=== PATIENT | male | born 1985 | race Caucasian/White ===

== ENCOUNTER 2018-10-11 14:09 | Emergency (ER) | payer BC ==
--- NOTE | 2018-10-11 18:14 | ED ---
Lower Extremity - HPI Summary HPI Summary: 33-year-old male presents with left posterior knee pain for the past couple days. He states he noticed some redness to the area. Denies any recent travel. He does have family history of blood clots. Is a smoker. he denies any chest pain or shortness breath. No injury. No numbness or tingling. No other pain. Denies any swelling. no fevers. no bug bite or tick exposure. never had this before. - History of Current Complaint Chief Complaint: EDExtremityLower Stated Complaint: SWELLING AND PAIN IN KNEE Time Seen by Provider: 10/11/18 17:39 Pain Intensity: 0 - Allergies/Home Medications Allergies/Adverse Reactions: Allergies Allergy/AdvReac Type Severity Reaction Status Date / Time No Known Allergies Allergy Verified 10/11/18 14:24 PMH/Surg Hx/FS Hx/Imm Hx Endocrine/Hematology History: Denies: Hx Anticoagulant Therapy Cardiovascular History: Denies: Hx Myocardial Infarction Infectious Disease History: No Infectious Disease History: Denies: Traveled Outside the [place] in Last 30 Days - Family History Known Family History: Positive: Blood Disorder - Social History Alcohol Use: Rare Substance Use Type: Reports: None Smoking Status (MU): Never Smoked Tobacco Review of Systems Negative: Fever Negative: Chest Pain Negative: Shortness Of Breath Positive: Myalgia - left posterior knee pain All Other Systems Reviewed And Are Negative: Yes Physical Exam Triage Information Reviewed: Yes Vital Signs On Initial Exam: Initial Vitals Temp Pulse Resp BP Pulse Ox 98.0 F 88 16 155/92 99 10/11/18 14:21 10/11/18 14:21 10/11/18 14:21 10/11/18 14:21 10/11/18 14:21 Vital Signs Reviewed: Yes Appearance: Positive: Well-Appearing Skin: Positive: Warm, Dry Head/Face: Positive: Normal Head/Face Inspection Eyes: Positive: Normal, Conjunctiva Clear ENT: Positive: Pharynx normal Respiratory/Lung Sounds: Positive: Clear to Auscultation, Breath Sounds Present Cardiovascular: Positive: Normal, RRR Musculoskeletal: Positive: Other - tenderness medial aspect of posterior left knee, good pulses, mild erythema to the area Neurological: Positive: Normal Psychiatric: Positive: Normal Diagnostics - Vital Signs Vital Signs Temp Pulse Resp BP Pulse Ox 10/11/18 14:21 98.0 F 88 16 155/92 99 - Laboratory Lab Statement: Any lab studies that have been ordered have been reviewed, and results considered in the medical decision making process. - Ultrasound No standard instances Ultrasound Interpretation Completed By: Radiologist Summary of Ultrasound Findings: IMPRESSION: No evidence of deep vein thrombosis. Small popliteal cyst. Lower Extremity Course/Dx - Course Course Of Treatment: 33-year-old male presents with left posterior knee pain for the past couple days. He states he noticed some redness to the area. Denies any recent travel. He does have family history of blood clots. Is a smoker. he denies any chest pain or shortness breath. No injury. No numbness or tingling. No other pain. Denies any swelling. On exam has tenderness over left posterior knee pain. Neurovascular intact. Mild erythema that is not warm to touch the area. Ultrasound shows popliteal cysts. No DVT. Explained to be plebitis versus popliteal cyst. Told to take Tylenol or ibuprofen for pain. Patient understands and agrees with plan. - Diagnoses Differential Diagnosis/HQI/PQRI: Positive: DVT, Phlebitis, Other - poplital cyst Provider Diagnoses: Popliteal cyst Discharge - Sign-Out/Discharge Documenting (check all that apply): Patient Departure - Discharge Plan Condition: Good Disposition: HOME Patient Education Materials: [facility] (ED) Referrals: No Primary Care Phys,NOPCP [Primary Care Provider] - Additional Instructions: can use ana on area apply ice elevate Take tyenlol or ibuprofen for pain every 6 hours Return to ED if develop any new or worsening symptoms - Billing Disposition and Condition Condition: GOOD Disposition: Home
[2018-10-11 19:56] VITALS: BP 125/91
== END 2018-10-11 19:55 | disposition home or self-care (01) ==
LOC: ED 14:09
DX: M71.22 Synovial cyst of popliteal space [Baker], left knee (principal); F17.200 Nicotine dependence, unspecified, uncomplicated
CPT/HCPCS: 99281